=== PATIENT | male | born 1955 | race Native Hawaiian/Other Pacific Islander ===

== ENCOUNTER 2020-06-23 15:24 | Outpatient (CLI) | payer OTHER ==
[2020-06-23 15:40] LABS: PLATELET COUNT 193 K/uL (142-355)
[2020-06-23 16:11] LABS: POTASSIUM 4.2 mmol/L (3.6-5.2)
== END 2020-06-23 21:56 | disposition home or self-care (01) ==
LOC: LAB 15:24
PROVIDERS: ATTEND Nurse Practitioner Family
DX: F32.9 Major depressive disorder, single episode, unspecified (principal); G47.09 Other insomnia; I10 Essential (primary) hypertension; E78.49 Other hyperlipidemia; K21.9 Gastro-esophageal reflux disease without esophagitis; Z79.899 Other long term (current) drug therapy; E55.9 Vitamin D deficiency, unspecified
CPT/HCPCS: 80053; 80061; 82306; 83036; 84153; 84402; 84403; 84439; 84443; 84481; 85027

== ENCOUNTER 2021-05-23 08:57 | Observation (INO) | payer OTHER ==
[~2021-05-23] VITALS: Ht 165.1 cm; Wt 77.1 kg
[2021-05-23 09:04] VITALS: BP 137/75; TEMP 98.9
[2021-05-23 09:31] LABS: PLATELET COUNT 209 K/uL (142-355)
[2021-05-23 09:53] LABS: PARTIAL THROMBOPLASTIN TIME 23.9 SECONDS (24.5-33.6)
[2021-05-23 09:54] LABS: POTASSIUM 3.9 mmol/L (3.6-5.2)
[2021-05-23 09:55] VITALS: BP 142/70
[2021-05-23 11:30] VITALS: BP 137/74
[2021-05-23] MEDS ORDERED: TRAZODONE HYDR100 MG PO (11:30)
[2021-05-23] MEDS ORDERED: LIPITOR40 MG PO (11:30)
[2021-05-23] MEDS ORDERED: LOSA50TA PO (11:31)
[2021-05-23] MEDS ORDERED: MOBIC15 MG PO (11:31)
[2021-05-23] MEDS ORDERED: WELLBUTRIN150 MG PO (11:31)
[2021-05-23] MEDS ORDERED: OMEP40CA PO (11:32)
[2021-05-23] MEDS ORDERED: TESTOSTERON200 MG/ML IM (11:32)
--- NOTE | 2021-05-23 12:45 | NUR ---
PATIENT BROUGHT VIA WHEELCHAIR TO ROOM 1115. PATIENT ADMISSION ASSESSMENT COMPLETED AND MEDICATIONS DOCUMENTED ON SHEET TO SENT TO PHARMACY. PATIENT ORIENTED TO ROOM AND CALL LIGHT. IV 20G RAC SALINE LOCKED. BED IS LOCKED IN LOW POSITION WITH SIDE RAILS UP X2. IS AT THE BEDSIDE.
[2021-05-23 13:33] VITALS: BP 148/59; TEMP 98.6; Ht 165.1 cm; Wt 77.1 kg
[2021-05-23 20:00] VITALS: BP 98/47; TEMP 98.2
[2021-05-24] VITALS: BP 108/51; TEMP 98.4
[2021-05-24 04:22] VITALS: BP 135/73; TEMP 97.7
[2021-05-24 07:59] LABS: PLATELET COUNT 164 K/uL (142-355)
[2021-05-24 08:00] VITALS: BP 142/71; TEMP 97.5
--- NOTE | 2021-05-24 08:51 | NUR ---
PATIENT TALKING ON PERSONAL CELL PHONE. NAD NOTED WITH PATIENT AT THIS TIME. PATIENT'S AT BEDSIDE AND DENIES ANY NEEDS.
[2021-05-24 12:00] VITALS: BP 153/72; TEMP 98.3
[2021-05-24 16:00] VITALS: BP 151/72; TEMP 98.8
== END 2021-05-24 18:40 | disposition home or self-care (01) ==
LOC: ED 08:57 → MED/SURG 10:30 → UNDODEPER 05-24 12:36 → MED/SURG 05-24 18:40
PROVIDERS: ADMIT Hospitalist; ATTEND Internal Medicine Endocrinology, Diabetes & Metabolism
DX: R55 Syncope and collapse (principal); I10 Essential (primary) hypertension; E78.49 Other hyperlipidemia; I25.10 Atherosclerotic heart disease of native coronary artery without angina pectoris; F32.A Depression, unspecified; E11.9 Type 2 diabetes mellitus without complications; R51.9 Headache, unspecified; Z79.899 Other long term (current) drug therapy
CPT/HCPCS: 36415; 80048; 80053; 80307; 80320; 81000; 82550; 83880; 84484; 85027; 85610; 85730; 87635; 93005; 96360; 99220; 99284; A9576; G0378; J1650; U0003

== ENCOUNTER 2021-06-26 12:42 | Outpatient (CLI) | payer OTHER ==
[~2021-06-26 12:42] MED LIST: LIPITOR40 MG PO; LOSA50TA PO; MOBIC15 MG PO; OMEP40CA PO; TESTOSTERON200 MG/ML IM; TRAZODONE HYDR100 MG PO; WELLBUTRIN150 MG PO
== END 2021-06-26 19:55 | disposition home or self-care (01) ==
LOC: MRI 12:42
PROVIDERS: ATTEND Nurse Practitioner Family
DX: E78.5 Hyperlipidemia, unspecified (principal); R55 Syncope and collapse; I10 Essential (primary) hypertension; R41.3 Other amnesia